=== PATIENT | male | born 1935 | race Caucasian/White ===

== ENCOUNTER 2016-02-15 08:21 | Outpatient (CLI) | END 2016-02-15 08:22 | disposition home or self-care (01) ==

== ENCOUNTER 2016-02-29 08:29 | Outpatient (CLI) | payer MEDICARE | END 2016-02-29 08:30 | disposition home or self-care (01) | DX: I48.91 Unspecified atrial fibrillation (principal) ==

== ENCOUNTER 2016-03-27 08:00 | Outpatient (CLI) | payer MEDICARE | END 2016-03-27 08:01 | disposition home or self-care (01) | DX: I48.91 Unspecified atrial fibrillation (principal) ==

== ENCOUNTER 2016-05-17 07:40 | Outpatient (CLI) | payer MEDICARE | END 2016-05-17 07:41 | disposition home or self-care (01) | DX: I48.91 Unspecified atrial fibrillation (principal) ==

== ENCOUNTER 2016-05-24 08:22 | Outpatient (CLI) | payer MEDICARE | END 2016-05-24 08:23 | disposition home or self-care (01) | DX: I48.91 Unspecified atrial fibrillation (principal) ==

== ENCOUNTER 2016-06-07 07:59 | Outpatient (CLI) | payer MEDICARE | END 2016-06-07 08:00 | disposition home or self-care (01) | DX: I48.91 Unspecified atrial fibrillation (principal) ==

== ENCOUNTER 2016-06-21 08:04 | Outpatient (CLI) | payer MEDICARE | END 2016-06-21 08:05 | disposition home or self-care (01) | LOC: LAB.F 08:04 | PROVIDERS: ATTEND Emergency Medicine | DX: I48.91 Unspecified atrial fibrillation (principal) | CPT/HCPCS: 85610 ==

== ENCOUNTER 2016-07-11 07:54 | Outpatient (CLI) | payer MEDICARE | END 2016-07-11 07:55 | disposition home or self-care (01) | DX: I48.91 Unspecified atrial fibrillation (principal) ==

== ENCOUNTER 2016-08-07 07:42 | Outpatient (CLI) | payer MEDICARE | END 2016-08-07 07:43 | disposition home or self-care (01) | LOC: LAB.F 07:42 | PROVIDERS: ATTEND Emergency Medicine | DX: I48.91 Unspecified atrial fibrillation (principal) | CPT/HCPCS: 85610 ==

== ENCOUNTER 2016-09-04 08:11 | Outpatient (CLI) | payer OTHER | END 2016-09-04 08:12 | disposition home or self-care (01) | LOC: LAB.F 08:11 | PROVIDERS: ATTEND Emergency Medicine | DX: I48.91 Unspecified atrial fibrillation (principal) | CPT/HCPCS: 85610 ==

== ENCOUNTER 2016-10-30 08:42 | Outpatient (CLI) | payer OTHER | END 2016-10-30 08:43 | disposition home or self-care (01) | LOC: LAB.F 08:42 | PROVIDERS: ATTEND Emergency Medicine | DX: I48.91 Unspecified atrial fibrillation (principal) | CPT/HCPCS: 85610 ==

== ENCOUNTER 2016-11-13 09:02 | Outpatient (CLI) | payer OTHER | END 2016-11-13 09:03 | disposition home or self-care (01) | LOC: LAB.F 09:02 | PROVIDERS: ATTEND Emergency Medicine | DX: I48.91 Unspecified atrial fibrillation (principal) | CPT/HCPCS: 85610 ==

== ENCOUNTER 2016-12-04 08:24 | Outpatient (CLI) | payer OTHER | END 2016-12-04 08:25 | disposition home or self-care (01) | LOC: LAB.F 08:24 | PROVIDERS: ATTEND Emergency Medicine | DX: I48.91 Unspecified atrial fibrillation (principal) | CPT/HCPCS: 85610 ==

== ENCOUNTER 2016-12-31 08:56 | Outpatient (CLI) | payer MEDICARE | END 2016-12-31 08:57 | disposition home or self-care (01) | LOC: LAB.F 08:56 | PROVIDERS: ATTEND Emergency Medicine | DX: I48.91 Unspecified atrial fibrillation (principal) | CPT/HCPCS: 85610 ==

== ENCOUNTER 2017-01-14 08:46 | Outpatient (CLI) | payer MEDICARE | END 2017-01-14 08:47 | disposition home or self-care (01) | LOC: LAB.F 08:46 | PROVIDERS: ATTEND Emergency Medicine | DX: I48.91 Unspecified atrial fibrillation (principal) | CPT/HCPCS: 85610 ==

== ENCOUNTER 2017-01-29 08:59 | Outpatient (CLI) | payer MEDICARE | END 2017-01-29 09:00 | disposition home or self-care (01) | LOC: LAB.F 08:59 | PROVIDERS: ATTEND Emergency Medicine | DX: I48.91 Unspecified atrial fibrillation (principal) | CPT/HCPCS: 85610 ==

== ENCOUNTER 2017-02-19 08:51 | Outpatient (CLI) | payer MEDICARE | END 2017-02-19 08:52 | disposition home or self-care (01) | LOC: LAB.F 08:51 | PROVIDERS: ATTEND Emergency Medicine | DX: I48.91 Unspecified atrial fibrillation (principal) | CPT/HCPCS: 85610 ==

== ENCOUNTER 2017-03-19 08:11 | Outpatient (CLI) | payer MEDICARE | END 2017-03-19 08:12 | disposition home or self-care (01) | LOC: LAB.F 08:11 | PROVIDERS: ATTEND Emergency Medicine | DX: I48.91 Unspecified atrial fibrillation (principal) | CPT/HCPCS: 85610 ==

== ENCOUNTER 2017-03-27 08:28 | Outpatient (CLI) | payer MEDICARE | END 2017-03-27 08:29 | disposition home or self-care (01) | LOC: LAB.F 08:28 | PROVIDERS: ATTEND Emergency Medicine | DX: I48.91 Unspecified atrial fibrillation (principal) | CPT/HCPCS: 85610 ==

== ENCOUNTER 2017-04-08 08:54 | Outpatient (CLI) | payer MEDICARE | END 2017-04-08 08:55 | disposition home or self-care (01) | LOC: LAB.F 08:54 | PROVIDERS: ATTEND Emergency Medicine | DX: I48.91 Unspecified atrial fibrillation (principal) | CPT/HCPCS: 85610 ==

== ENCOUNTER 2017-05-14 08:36 | Outpatient (CLI) | payer MEDICARE | END 2017-05-14 08:37 | disposition home or self-care (01) | LOC: LAB.F 08:36 | PROVIDERS: ATTEND Emergency Medicine | DX: I48.91 Unspecified atrial fibrillation (principal) | CPT/HCPCS: 85610 ==

== ENCOUNTER 2017-05-28 07:30 | Outpatient (CLI) | payer MEDICARE | END 2017-05-28 07:31 | disposition home or self-care (01) | LOC: LAB.F 07:30 | PROVIDERS: ATTEND Emergency Medicine | DX: I48.91 Unspecified atrial fibrillation (principal) | CPT/HCPCS: 85610 ==

== ENCOUNTER 2017-06-18 07:54 | Outpatient (CLI) | payer MEDICARE | END 2017-06-18 07:55 | disposition home or self-care (01) | LOC: LAB.F 07:54 | PROVIDERS: ATTEND Emergency Medicine | DX: I48.91 Unspecified atrial fibrillation (principal) | CPT/HCPCS: 85610 ==

== ENCOUNTER 2017-06-25 08:16 | Outpatient (CLI) | payer MEDICARE | END 2017-06-25 08:17 | disposition home or self-care (01) | LOC: LAB.F 08:16 | PROVIDERS: ATTEND Emergency Medicine | DX: I48.91 Unspecified atrial fibrillation (principal) | CPT/HCPCS: 85610 ==

== ENCOUNTER 2017-07-01 08:35 | Outpatient (CLI) | payer MEDICARE | END 2017-07-01 08:36 | disposition home or self-care (01) | LOC: LAB.F 08:35 | PROVIDERS: ATTEND Emergency Medicine | DX: I48.91 Unspecified atrial fibrillation (principal) | CPT/HCPCS: 85610 ==

== ENCOUNTER 2017-07-14 10:28 | Outpatient (CLI) | payer MEDICARE | END 2017-07-14 10:29 | disposition home or self-care (01) | LOC: LAB.F 10:28 | PROVIDERS: ATTEND Emergency Medicine | DX: I48.91 Unspecified atrial fibrillation (principal) | CPT/HCPCS: 36415; 85025; 85610 ==

== ENCOUNTER 2017-07-21 08:25 | Outpatient (CLI) | payer MEDICARE | END 2017-07-21 08:26 | disposition home or self-care (01) | LOC: LAB.F 08:25 | PROVIDERS: ATTEND Emergency Medicine | DX: I48.91 Unspecified atrial fibrillation (principal) | CPT/HCPCS: 85610 ==

== ENCOUNTER 2017-07-29 08:10 | Outpatient (CLI) | payer MEDICARE | END 2017-07-29 08:11 | disposition home or self-care (01) | LOC: LAB.F 08:10 | PROVIDERS: ATTEND Emergency Medicine | DX: I48.91 Unspecified atrial fibrillation (principal) | CPT/HCPCS: 85610 ==

== ENCOUNTER 2017-08-06 08:16 | Outpatient (CLI) | payer MEDICARE | END 2017-08-06 08:17 | disposition home or self-care (01) | LOC: LAB.F 08:16 | PROVIDERS: ATTEND Emergency Medicine | DX: I48.91 Unspecified atrial fibrillation (principal) | CPT/HCPCS: 85610 ==

== ENCOUNTER 2017-08-20 08:02 | Outpatient (CLI) | payer MEDICARE | END 2017-08-20 08:03 | disposition home or self-care (01) | LOC: LAB.F 08:02 | PROVIDERS: ATTEND Emergency Medicine | DX: I48.91 Unspecified atrial fibrillation (principal) | CPT/HCPCS: 85610 ==

== ENCOUNTER 2017-09-10 07:44 | Outpatient (CLI) | payer MEDICARE | END 2017-09-10 07:45 | disposition home or self-care (01) | LOC: LAB.F 07:44 | PROVIDERS: ATTEND Emergency Medicine | DX: I48.91 Unspecified atrial fibrillation (principal) | CPT/HCPCS: 85610 ==

== ENCOUNTER 2017-10-08 08:56 | Outpatient (CLI) | payer MEDICARE | END 2017-10-08 08:57 | disposition home or self-care (01) | LOC: LAB.F 08:56 | PROVIDERS: ATTEND Emergency Medicine | DX: I48.91 Unspecified atrial fibrillation (principal) | CPT/HCPCS: 85610 ==

== ENCOUNTER 2017-11-19 08:01 | Outpatient (CLI) | payer MEDICARE | END 2017-11-19 08:02 | disposition home or self-care (01) | LOC: LAB.F 08:01 | PROVIDERS: ATTEND Emergency Medicine | DX: I48.91 Unspecified atrial fibrillation (principal) | CPT/HCPCS: 85610 ==

== ENCOUNTER 2018-01-14 08:02 | Outpatient (CLI) | payer MEDICARE | END 2018-01-14 08:03 | disposition home or self-care (01) | LOC: LAB.F 08:02 | PROVIDERS: ATTEND Emergency Medicine | DX: I48.91 Unspecified atrial fibrillation (principal) | CPT/HCPCS: 85610 ==

== ENCOUNTER 2018-01-28 08:02 | Outpatient (CLI) | payer MEDICARE | END 2018-01-28 08:03 | disposition home or self-care (01) | LOC: LAB.F 08:02 | PROVIDERS: ATTEND Emergency Medicine | DX: Z53.9 Procedure and treatment not carried out, unspecified reason (principal) ==

== ENCOUNTER 2018-01-28 08:10 | Outpatient (CLI) | payer MEDICARE | END 2018-01-28 08:11 | disposition home or self-care (01) | LOC: LAB.F 08:10 | PROVIDERS: ATTEND Emergency Medicine | DX: I48.91 Unspecified atrial fibrillation (principal) | CPT/HCPCS: 85610 ==

== ENCOUNTER 2018-03-10 08:38 | Outpatient (CLI) | payer MEDICARE | END 2018-03-10 08:39 | disposition home or self-care (01) | LOC: LAB.F 08:38 | PROVIDERS: ATTEND Emergency Medicine | DX: I48.91 Unspecified atrial fibrillation (principal) | CPT/HCPCS: 85610 ==

== ENCOUNTER 2018-04-07 08:40 | Outpatient (CLI) | payer MEDICARE | END 2018-04-07 08:41 | disposition home or self-care (01) | LOC: LAB.F 08:40 | PROVIDERS: ATTEND Emergency Medicine | DX: I48.91 Unspecified atrial fibrillation (principal) | CPT/HCPCS: 85610 ==

== ENCOUNTER 2018-05-05 08:04 | Outpatient (CLI) | payer MEDICARE | END 2018-05-05 08:05 | disposition home or self-care (01) | LOC: LAB.F 08:04 | PROVIDERS: ATTEND Emergency Medicine | DX: I48.91 Unspecified atrial fibrillation (principal) | CPT/HCPCS: 85610 ==

== ENCOUNTER 2018-06-16 08:32 | Outpatient (CLI) | payer MEDICARE | END 2018-06-16 08:33 | disposition home or self-care (01) | LOC: LAB.F 08:32 | PROVIDERS: ATTEND Emergency Medicine | DX: I48.91 Unspecified atrial fibrillation (principal) | CPT/HCPCS: 85610 ==

== ENCOUNTER 2018-08-04 09:18 | Outpatient (CLI) | payer MEDICARE | END 2018-08-04 09:19 | disposition home or self-care (01) | LOC: LAB.F 09:18 | PROVIDERS: ATTEND Emergency Medicine | DX: I48.91 Unspecified atrial fibrillation (principal) | CPT/HCPCS: 85610 ==

== ENCOUNTER 2018-08-17 11:09 | Outpatient (CLI) | payer MEDICARE | END 2018-08-17 11:10 | disposition home or self-care (01) | LOC: LAB.F 11:09 | PROVIDERS: ATTEND Emergency Medicine | DX: I48.91 Unspecified atrial fibrillation (principal) | CPT/HCPCS: 85610 ==

== ENCOUNTER 2018-09-23 08:56 | Outpatient (CLI) | payer MEDICARE | END 2018-09-23 08:57 | disposition home or self-care (01) | LOC: LAB.S 08:56 | PROVIDERS: ATTEND Emergency Medicine | DX: I48.91 Unspecified atrial fibrillation (principal) | CPT/HCPCS: 85610 ==

== ENCOUNTER 2018-10-20 10:39 | Outpatient (CLI) | payer MEDICARE | END 2018-10-20 10:40 | disposition home or self-care (01) | LOC: LAB.S 10:39 | PROVIDERS: ATTEND Emergency Medicine | DX: I48.91 Unspecified atrial fibrillation (principal) | CPT/HCPCS: 85610 ==

== ENCOUNTER 2018-11-25 08:39 | Outpatient (CLI) | payer MEDICARE | END 2018-11-25 08:40 | disposition home or self-care (01) | LOC: LAB.S 08:39 | PROVIDERS: ATTEND Emergency Medicine | DX: I48.91 Unspecified atrial fibrillation (principal) | CPT/HCPCS: 85610 ==

== ENCOUNTER 2019-01-20 08:53 | Outpatient (CLI) | payer MEDICARE | END 2019-01-20 08:54 | disposition home or self-care (01) | LOC: LAB.S 08:53 | PROVIDERS: ATTEND Emergency Medicine | DX: I48.91 Unspecified atrial fibrillation (principal) | CPT/HCPCS: 85610 ==

== ENCOUNTER 2019-01-29 08:56 | Outpatient (CLI) | payer MEDICARE | END 2019-01-29 08:57 | disposition home or self-care (01) | LOC: LAB.S 08:56 | PROVIDERS: ATTEND Emergency Medicine | DX: I48.91 Unspecified atrial fibrillation (principal) | CPT/HCPCS: 85610 ==

== ENCOUNTER 2019-02-09 08:37 | Outpatient (CLI) | payer MEDICARE | END 2019-02-09 08:38 | disposition home or self-care (01) | LOC: LAB.S 08:37 | PROVIDERS: ATTEND Emergency Medicine | DX: I48.91 Unspecified atrial fibrillation (principal) | CPT/HCPCS: 85610 ==

== ENCOUNTER 2019-02-23 11:56 | Outpatient (CLI) | payer MEDICARE | END 2019-02-23 11:57 | disposition home or self-care (01) | LOC: LAB.S 11:56 | PROVIDERS: ATTEND Emergency Medicine | DX: I48.91 Unspecified atrial fibrillation (principal) | CPT/HCPCS: 85610 ==

== ENCOUNTER 2019-03-19 09:06 | Outpatient (CLI) | payer MEDICARE | END 2019-03-19 09:07 | disposition home or self-care (01) | LOC: LAB.S 09:06 | PROVIDERS: ATTEND Emergency Medicine | DX: I48.91 Unspecified atrial fibrillation (principal) | CPT/HCPCS: 85610 ==

== ENCOUNTER 2019-03-30 09:30 | Outpatient (CLI) | payer MEDICARE | END 2019-03-30 09:31 | disposition home or self-care (01) | LOC: LAB.S 09:30 | PROVIDERS: ATTEND Emergency Medicine | DX: I48.91 Unspecified atrial fibrillation (principal) | CPT/HCPCS: 85610 ==

== ENCOUNTER 2019-05-03 09:47 | Outpatient (CLI) | payer MEDICARE | END 2019-05-03 09:48 | disposition home or self-care (01) | LOC: LAB.S 09:47 | PROVIDERS: ATTEND Emergency Medicine | DX: I48.91 Unspecified atrial fibrillation (principal) | CPT/HCPCS: 85610 ==

== ENCOUNTER 2019-05-31 09:47 | Outpatient (CLI) | payer MEDICARE | END 2019-05-31 09:48 | disposition home or self-care (01) | LOC: LAB 09:47 | PROVIDERS: ATTEND Emergency Medicine | DX: I48.91 Unspecified atrial fibrillation (principal) | CPT/HCPCS: 85610 ==

== ENCOUNTER 2019-06-28 08:49 | Outpatient (CLI) | payer MEDICARE | END 2019-06-28 08:50 | disposition home or self-care (01) | LOC: LAB 08:49 | PROVIDERS: ATTEND Emergency Medicine | DX: I48.91 Unspecified atrial fibrillation (principal) | CPT/HCPCS: 85610 ==

== ENCOUNTER 2019-07-13 09:27 | Outpatient (CLI) | payer MEDICARE | END 2019-07-13 09:28 | disposition home or self-care (01) | LOC: LAB 09:27 | PROVIDERS: ATTEND Emergency Medicine | DX: I48.91 Unspecified atrial fibrillation (principal) | CPT/HCPCS: 85610 ==

== ENCOUNTER 2019-08-02 12:22 | Outpatient (CLI) | payer MEDICARE | END 2019-08-02 12:23 | disposition home or self-care (01) | LOC: LAB.S 12:22 | PROVIDERS: ATTEND Emergency Medicine | DX: I48.91 Unspecified atrial fibrillation (principal) | CPT/HCPCS: 85610 ==

== ENCOUNTER 2019-08-23 08:56 | Outpatient (CLI) | payer MEDICARE | END 2019-08-23 08:57 | disposition home or self-care (01) | LOC: LAB.S 08:56 | PROVIDERS: ATTEND Emergency Medicine | DX: I48.91 Unspecified atrial fibrillation (principal) | CPT/HCPCS: 85610 ==

== ENCOUNTER 2019-10-19 08:46 | Outpatient (CLI) | payer MEDICARE | END 2019-10-19 08:47 | disposition home or self-care (01) | LOC: LAB.S 08:46 | PROVIDERS: ATTEND Emergency Medicine | DX: I48.91 Unspecified atrial fibrillation (principal) | CPT/HCPCS: 85610 ==

== ENCOUNTER 2019-11-16 09:01 | Outpatient (CLI) | payer MEDICARE | END 2019-11-16 09:02 | disposition home or self-care (01) | LOC: LAB.S 09:01 | PROVIDERS: ATTEND Emergency Medicine | DX: I48.91 Unspecified atrial fibrillation (principal) | CPT/HCPCS: 85610 ==

== ENCOUNTER 2019-11-29 08:00 | Outpatient (CLI) | payer MEDICARE | END 2019-11-29 23:59 | disposition home or self-care (01) | LOC: LAB.S 08:00 | PROVIDERS: ATTEND Emergency Medicine | DX: I48.91 Unspecified atrial fibrillation (principal) | CPT/HCPCS: 85610 ==

== ENCOUNTER 2019-12-07 09:03 | Outpatient (CLI) | payer MEDICARE | END 2019-12-07 09:04 | disposition home or self-care (01) | LOC: LAB.S 09:03 | PROVIDERS: ATTEND Emergency Medicine | DX: I48.91 Unspecified atrial fibrillation (principal) | CPT/HCPCS: 85610 ==

== ENCOUNTER 2019-12-16 09:12 | Outpatient (CLI) | payer MEDICARE | END 2019-12-16 09:13 | disposition home or self-care (01) | LOC: LAB.S 09:12 | PROVIDERS: ATTEND Emergency Medicine | DX: I48.91 Unspecified atrial fibrillation (principal) | CPT/HCPCS: 85610 ==

== ENCOUNTER 2019-12-30 12:25 | Outpatient (CLI) | payer MEDICARE | END 2019-12-30 12:26 | disposition home or self-care (01) | LOC: LAB.S 12:25 | PROVIDERS: ATTEND Emergency Medicine | DX: I48.91 Unspecified atrial fibrillation (principal) | CPT/HCPCS: 85610 ==

== ENCOUNTER 2020-01-20 09:13 | Outpatient (CLI) | payer MEDICARE | END 2020-01-20 09:14 | disposition home or self-care (01) | LOC: LAB.S 09:13 | PROVIDERS: ATTEND Emergency Medicine | DX: I48.91 Unspecified atrial fibrillation (principal) | CPT/HCPCS: 85610 ==

== ENCOUNTER 2020-02-03 13:07 | Outpatient (CLI) | payer MEDICARE | END 2020-02-03 13:08 | disposition home or self-care (01) | LOC: LAB.S 13:07 | PROVIDERS: ATTEND Emergency Medicine | DX: I48.91 Unspecified atrial fibrillation (principal) | CPT/HCPCS: 85610 ==

== ENCOUNTER 2020-02-29 12:04 | Outpatient (CLI) | payer MEDICARE | END 2020-02-29 12:05 | disposition home or self-care (01) | LOC: LAB.S 12:04 | PROVIDERS: ATTEND Emergency Medicine | DX: I48.91 Unspecified atrial fibrillation (principal) | CPT/HCPCS: 85610 ==

== ENCOUNTER 2020-03-28 10:45 | Outpatient (CLI) | payer MEDICARE | END 2020-03-28 10:46 | disposition home or self-care (01) | LOC: LAB.S 10:45 | PROVIDERS: ATTEND Emergency Medicine | DX: I48.91 Unspecified atrial fibrillation (principal) | CPT/HCPCS: 85610 ==

== ENCOUNTER 2020-05-03 10:40 | Outpatient (CLI) | payer MEDICARE | END 2020-05-03 10:41 | disposition home or self-care (01) | LOC: LAB.S 10:40 | PROVIDERS: ATTEND Emergency Medicine | DX: I48.91 Unspecified atrial fibrillation (principal) | CPT/HCPCS: 85610 ==

== ENCOUNTER 2020-05-12 13:21 | Outpatient (CLI) | payer MEDICARE | END 2020-05-12 13:22 | disposition home or self-care (01) | LOC: LAB.S 13:21 | PROVIDERS: ATTEND Emergency Medicine | DX: I48.91 Unspecified atrial fibrillation (principal) | CPT/HCPCS: 85610 ==

== ENCOUNTER 2020-05-15 11:05 | Outpatient (CLI) | payer MEDICARE | END 2020-05-15 11:06 | disposition home or self-care (01) | LOC: LAB.S 11:05 | PROVIDERS: ATTEND Emergency Medicine | DX: I48.91 Unspecified atrial fibrillation (principal) | CPT/HCPCS: 85610 ==

== ENCOUNTER 2020-05-22 10:16 | Outpatient (CLI) | payer MEDICARE | END 2020-05-22 10:17 | disposition home or self-care (01) | LOC: LAB.S 10:16 | PROVIDERS: ATTEND Emergency Medicine | DX: I48.91 Unspecified atrial fibrillation (principal) | CPT/HCPCS: 85610 ==

== ENCOUNTER 2020-06-05 08:12 | Outpatient (CLI) | payer MEDICARE | END 2020-06-05 08:13 | disposition home or self-care (01) | LOC: LAB.S 08:12 | PROVIDERS: ATTEND Emergency Medicine | DX: I48.91 Unspecified atrial fibrillation (principal) | CPT/HCPCS: 85610 ==

== ENCOUNTER 2020-06-14 08:59 | Outpatient (CLI) | payer MEDICARE | END 2020-06-14 09:00 | disposition home or self-care (01) | LOC: LAB.S 08:59 | PROVIDERS: ATTEND Emergency Medicine | DX: I48.91 Unspecified atrial fibrillation (principal) | CPT/HCPCS: 36416; 85610 ==

== ENCOUNTER 2020-06-27 07:40 | Outpatient (CLI) | payer MEDICARE | END 2020-06-27 07:41 | disposition home or self-care (01) | LOC: LAB.S 07:40 | PROVIDERS: ATTEND Emergency Medicine | DX: I48.91 Unspecified atrial fibrillation (principal) | CPT/HCPCS: 36416; 85610 ==

== ENCOUNTER 2020-07-25 07:35 | Outpatient (CLI) | payer MEDICARE | END 2020-07-25 07:36 | disposition home or self-care (01) | LOC: LAB.S 07:35 | PROVIDERS: ATTEND Emergency Medicine | DX: I48.91 Unspecified atrial fibrillation (principal) | CPT/HCPCS: 36416; 85610 ==

== ENCOUNTER 2020-08-21 12:24 | Outpatient (CLI) | payer MEDICARE | END 2020-08-21 12:25 | disposition home or self-care (01) | LOC: LAB.S 12:24 | PROVIDERS: ATTEND Emergency Medicine | DX: I48.91 Unspecified atrial fibrillation (principal) | CPT/HCPCS: 36416; 85610 ==

== ENCOUNTER 2020-09-04 10:15 | Outpatient (CLI) | payer MEDICARE | END 2020-09-04 10:16 | disposition home or self-care (01) | LOC: LAB.S 10:15 | PROVIDERS: ATTEND Emergency Medicine | DX: I48.91 Unspecified atrial fibrillation (principal) | CPT/HCPCS: 36416; 85610 ==

== ENCOUNTER 2020-09-18 13:57 | Outpatient (CLI) | payer MEDICARE | END 2020-09-18 13:58 | disposition EMS.NT | LOC: EMS 13:57 | DX: Z04.1 Encounter for examination and observation following transport accident (principal) ==

== ENCOUNTER 2020-09-25 08:52 | Outpatient (CLI) | payer MEDICARE | END 2020-09-25 08:53 | disposition home or self-care (01) | LOC: LAB.S 08:52 | PROVIDERS: ATTEND Emergency Medicine | DX: I48.91 Unspecified atrial fibrillation (principal) | CPT/HCPCS: 36416; 85610 ==

== ENCOUNTER 2020-10-23 09:06 | Outpatient (CLI) | payer MEDICARE | END 2020-10-23 09:07 | disposition home or self-care (01) | LOC: LAB.S 09:06 | PROVIDERS: ATTEND Emergency Medicine | DX: I48.91 Unspecified atrial fibrillation (principal) | CPT/HCPCS: 36416; 85610 ==

== ENCOUNTER 2020-10-30 07:50 | Outpatient (CLI) | payer MEDICARE | END 2020-10-30 07:51 | disposition home or self-care (01) | LOC: LAB.S 07:50 | PROVIDERS: ATTEND Emergency Medicine | DX: I48.91 Unspecified atrial fibrillation (principal) | CPT/HCPCS: 36416; 85610 ==

== ENCOUNTER 2020-12-29 13:33 | Outpatient (CLI) | payer MEDICARE ==
[2020-12-29 20:35] LABS: INR 1.6 (0.8-1.2)
== END 2020-12-29 13:34 | disposition home or self-care (01) ==
LOC: LAB.S 13:33
PROVIDERS: ATTEND Family Medicine
DX: I48.0 Paroxysmal atrial fibrillation (principal)
CPT/HCPCS: 36415; 81599; 84460; 85610

== ENCOUNTER 2021-01-11 08:17 | Outpatient (CLI) | payer MEDICARE | END 2021-01-11 08:18 | disposition home or self-care (01) | LOC: LAB.S 08:17 | PROVIDERS: ATTEND Emergency Medicine | DX: I48.0 Paroxysmal atrial fibrillation (principal) | CPT/HCPCS: 80162; 81599 ==

== ENCOUNTER 2022-06-21 10:40 | Outpatient (CLI) | payer MEDICARE ==
[2022-06-21 16:13] LABS: DIGOXIN 0.8 ng/mL
== END 2022-06-21 10:41 | disposition home or self-care (01) ==
LOC: LAB.S 10:40
PROVIDERS: ATTEND Family Medicine
DX: Z51.81 Encounter for therapeutic drug level monitoring (principal); Z79.899 Other long term (current) drug therapy
CPT/HCPCS: 36415; 80162

== ENCOUNTER 2022-07-10 10:44 | Outpatient (CLI) | payer MEDICARE | END 2022-07-10 10:45 | disposition home or self-care (01) | LOC: LAB.S 10:44 | PROVIDERS: ATTEND Urology | DX: C61 Malignant neoplasm of prostate (principal) | CPT/HCPCS: 36415; 84153 ==

== ENCOUNTER 2022-10-18 11:53 | Outpatient (CLI) | payer MEDICARE | END 2022-10-18 11:54 | disposition home or self-care (01) | LOC: LAB.S 11:53 | PROVIDERS: ATTEND Urology | DX: C61 Malignant neoplasm of prostate (principal) | CPT/HCPCS: 36415; 84153 ==

== ENCOUNTER 2022-12-01 08:22 | Outpatient (CLI) | payer MEDICARE | END 2022-12-01 08:23 | disposition E | LOC: EMS 08:22 ==